=== PATIENT | male | born 1940 | race Caucasian/White ===

== ENCOUNTER 2017-09-10 09:57 | Emergency (ER) | payer MEDICARE ==
--- NOTE | 2017-09-10 10:14 | Emergency Department Record ---
History of Present Illness - General Chief complaint: Extremity Problem Stated complaint: PAIN AND SWELLING RIGHT ELBOW Time Seen by Provider: 09/10/17 10:05 Source: Patient Mode of Arrival: Ambulatory Limitations: No limitations - History of Present Illness Initial comments: Pt to ED with complaint of left elbow pain and swelling onset one day CV/CVN CV [employer]. Pt is right hand dominate. Pt denies trauma or injury. No hx of similar. Pt is a insulin dependant Diabetic. No fever, chills, N/V. MD Complaint: Extremity pain, Extremity swelling, Joint pain Onset/Timin -: Days(s) Location: Left, Elbow History of Same: Yes -: Yes Arthralgia, No Fever, No Myalgia, No Associated chest pain Radiation: Proximal, Distal Severity scale (1-10): 5 Quality: Aching Consistency: Constant Improves with: Nothing Worsens with: Nothing Associated Symptoms: Denies other symptoms - Related Data Home Medications Medication Instructions Recorded Confirmed Last Taken Insulin Glargine,Hum.rec.anlog 35 units SQ QHS 09/10/17 09/10/17 Unknown [Lantus Solostar] Lisinopril/Hydrochlorothiazide 1 tab PO DAILY 09/10/17 09/10/17 Unknown [Lisinopril-Hctz 20-12.5 mg Tab] Metformin HCl 1,000 mg PO DAILY 09/10/17 09/10/17 Unknown Simvastatin 80 mg PO DAILY 09/10/17 09/10/17 Unknown Tamsulosin HCl [Flomax] 0.4 mg PO DAILY 09/10/17 09/10/17 Unknown Previous Rx's Medication Instructions Recorded Cephalexin [Keflex] 1,000 mg PO BID 10 Days #40 cap 09/10/17 Ibuprofen [Motrin 600Mg] 600 mg PO Q6H 10 Days #40 tablet 09/10/17 Allergies Allergy/AdvReac Type Severity Reaction Status Date / Time sitagliptin phosphate Allergy RASH Verified 03/01/15 07:29 [From Allison] Travel Screening - Travel/Exposure Within Last 30 Days Have you traveled within the last 30 days?: No Review of Systems Constitutional: Denies: Chills, Fever, Malaise Eyes: Denies: Eye discharge, Photophobia ENT: Denies: Congestion Respiratory: Denies: Cough, Dyspnea Cardiovascular: Denies: Chest pain Endocrine: Denies: Fatigue Gastrointestinal: Denies: Abdominal pain, Nausea, Vomiting Musculoskeletal: Reports: As per HPI, Arthralgia, Joint swelling. Denies: Back pain Skin: Reports: As per HPI. Denies: Rash Neurological: Denies: Abnormal gait, Weakness Psychiatric: Denies: Anxiety Past Medical History - SOCIAL HISTORY Smoking Status: Current every day smoker Alcohol Use: None Drug Use: None - RESPIRATORY Hx Respiratory Disorders: No - CARDIOVASCULAR Hx Cardio Disorders: Yes Hx Hypertension: Yes Comment:: high cholesterol - NEURO Hx Neuro Disorders: Yes Comment:: rls - GI Hx GI Disorders: Yes Hx of Polyps: Yes - Hx Genitourinary Disorders: Yes Hx Kidney Stones: Yes Hx Prostate Problems: Yes - ENDOCRINE Hx Endocrine Disorders: Yes - MUSCULOSKELETAL Hx Musculoskeletal Disorders: No - PSYCH Hx Psych Problems: No - HEMATOLOGY/ONCOLOGY Hx Hematology/Oncology Disorders: No Family Medical History Any Significant Family History?: Yes Hx Cancer: Mother Physical Exam - General General Appearance: Alert, Oriented x3, Cooperative, No acute distress Limitations: No limitations - Head Head exam: Atraumatic - Eye Eye exam: Normal appearance, PERRL, EOMI - ENT ENT exam: Normal exam, Mucous membranes moist Ear exam: Normal external inspection Nasal Exam: Normal inspection Mouth exam: Normal external inspection Throat exam: Normal inspection - Neck Neck exam: Normal inspection. negative: Lymphadenopathy - Respiratory Respiratory exam: Normal lung sounds bilaterally. negative: Rhonchi, Wheezes - Cardiovascular Cardiovascular Exam: Regular rate, Normal rhythm Peripheral Pulses: 2+: Radial (R), Radial (L) - GI/Abdominal GI/Abdominal exam: Soft, Normal bowel sounds. negative: Guarding, Tenderness - Extremities Extremities exam: Joint swelling, Normal capillary refill, Tenderness Image of Full Body: 1 - tenderness posterior over bursa with mild erythema and warmth. Limited ROM due to swelling and pain. - Back Back exam: Reports: Normal inspection - Neurological Neurological exam: Alert, Normal gait, Oriented X3 - Psychiatric Psychiatric exam: Normal affect, Normal mood - Skin Skin exam: Other (left elbow as above. Erythema without skin break or drainage. ) Course Vital Signs 09/10/17 10:00 Temperature 97.5 F L Pulse Rate 83 Respiratory 17 Rate Blood Pressure 135/73 Pulse Ox 97 Medical Decision Making - Management Options MDM Management: No Additional Work-up Planned - Data Complexity MDM Data: Labs Ordered and/or Reviewed, X-Ray Ordered and/or Reviewed, Independent Visualization of Image, Tracing, or Specimen - Lab Data Result diagrams: 09/10/17 10:20 09/10/17 10:20 Disposition Disposition: Discharge Clinical Impression: Bursitis Qualifiers: Bursitis location: elbow Elbow bursitis location: olecranon bursitis Laterality : left Qualified Code(s): M70.22 - Olecranon bursitis, left elbow Disposition: Home, Self-Care Condition: (2) Stable Instructions: Elbow Bursitis (ED) Additional Instructions: Warm compresses four times a day. Take medications as instructed without fail. Monitor your blood glucose closely. Recheck with your family doctor in one to two days or return to the ED if worse. Prescriptions: Cephalexin [Keflex] 1,000 mg PO BID 10 Days #40 cap Ibuprofen [Motrin 600Mg] 600 mg PO Q6H 10 Days #40 tablet Forms: Patient Portal Access Quality - Quality Measures Quality Measures: N/A - Blood Pressure Screening Does Patient Have Any of the Following: No Blood Pressure Classification: Pre-Hypertensive BP Reading Systolic Measurement: 135 Diastolic Measurement: 73 Screening for High Blood Pressure: < Pre-Hypertensive BP, F/U Documented > [ G8950] Pre-Hypertensive Follow-up Interventions: Follow-up with rescreen every year.
[2017-09-10 10:32] LABS: BASO % 0.3 % (0-6); EOS % 0.9 % (0-6); GRAN % 72.5 % (47-80); HEMATOCRIT 39.2 % (42.0-52.0); HEMOGLOBIN 12.5 gm/dl (14.0-18.0); LYMPH % 15.2 % (16-45); MEAN CELL VOLUME 89.9 fl (81-97); MEAN CORPUSCULAR HGB CONC 31.9 g/dl (32-36); MEAN PLATELET VOLUME 9.9 fl (7.4-10.4); MONO % 11.1 % (0-9); PLATELET COUNT 246 K/uL (130-400); RED BLOOD COUNT 4.36 M/uL (4.40-5.70); RED CELL DISTRIBUTION WIDTH 13.8 % (11.5-14.5)
[2017-09-10 10:41] LABS: BLOOD UREA NITROGEN 16 mg/dL (8-23); CREATININE 0.9 mg/dL (0.7-1.2); EST GLOMERULAR FILTRATION RATE > 60 mL/min
[2017-09-10 10:43] LABS: MEAN CORPUSCULAR HEMOGLOBIN 28.6 pg (27-33)
[2017-09-10 10:44] LABS: GLUCOSE,RANDOM 139 mg/dL (74-109)
[2017-09-10] MEDS: CEFAZOLIN 2 Gram 2 GM/50 ML BAG IVPB ONE (10:53)
--- NOTE | 2017-09-11 10:46 | RADIOLOGY REPORT ---
EXAM: LEFT ELBOW COMPLETE HISTORY: PATIENT WOKE WITH PAIN AND SWELLING IN THE LEFT ELBOW. NO KNOWN INJURY. TECHNIQUE: AP, oblique, lateral and olecranon views of the left elbow were obtained. Comparison: None. Encounter: Initial. FINDINGS: There is normal bone mineralization. No acute fracture, dislocation , or destructive bone lesion is seen. There are moderate osteoarthritic changes most pronounced in the medial compartment. Tiny calcific densities project near the posterior joint line on the lateral view with loose bodies not excluded. The anterior and posterior fat pad signs are present suggesting joint effusion. No foreign body identified. Enthesopathic spurring visualized in the epicondylar regions most pronounced medially. IMPRESSION: 1. NO ACUTE FRACTURE NOR DISLOCATION. 2. MODERATE OSTEOARTHRITIC CHANGES MOST PRONOUNCED IN THE MEDIAL COMPARTMENT WITH POSSIBLE TINY LOOSE BODIES AT THE POSTERIOR JOINT LINE. JOINT EFFUSION. JOB NUMBER: [id number] MTDD
== END 2017-09-10 11:35 | disposition home or self-care (01) ==
LOC: ER 09:57
DX: M70.22 Olecranon bursitis, left elbow (principal); E11.9 Type 2 diabetes mellitus without complications; Z79.4 Long term (current) use of insulin; I10 Essential (primary) hypertension; F17.210 Nicotine dependence, cigarettes, uncomplicated
CPT/HCPCS: 80048; 85027; 96365; 99284

== ENCOUNTER 2018-06-27 08:26 | Emergency (ER) | payer MEDICARE ==
--- NOTE | 2018-06-27 08:50 | Emergency Department Record ---
History of Present Illness - General Chief Complaint: Shortness of breath Stated Complaint: OLU Time Seen by Provider: 06/27/18 08:29 Source: Patient, Family Mode of Arrival: EMS Limitations: No limitations - History of Present Illness Initial Comments: The patient is here due to becoming SOB at home an hour ago. He was walking to his house and had walked 50-60 feet when he became very SOB. He then sat down and felt better. The patient denied any Cp or discomfort with the SOB. He has not been feeling well recently and has been under a lot of stress. The patient denies any hx of CAD or heart issues but has never had any heart stress testing or studies. He does have significant cardiac risk factors of tobacco use, HTN, and DM. MD Complaint: Shortness of breath Onset/Timin -: Days(s) Quality: Aching Consistency: Constant Improves With: Nothing Worsens With: Nothing - Related Data Home Medications Medication Instructions Recorded Confirmed Last Taken Aspirin 81 mg PO DAILY 06/27/18 06/27/18 06/27/18 Carbidopa/Levodopa 25Mg/100Mg 1 each PO TID 06/27/18 06/27/18 06/27/18 [Sinemet] Previous Rx's Medication Instructions Recorded Ibuprofen [Motrin 600Mg] 600 mg PO Q6H 10 Days #40 tablet 09/10/17 Allergies Allergy/AdvReac Type Severity Reaction Status Date / Time sitagliptin phosphate Allergy RASH Verified 06/27/18 08:35 [From Allison] Travel Screening - Travel/Exposure Within Last 30 Days Have you traveled within the last 30 days?: No - Travel/Exposure Within Last Year Have you traveled outside the [place] in the last year?: No - Additonal Travel Details Have you been exposed to anyone with a communicable illness?: No - Travel Symptoms Symptom Screening: None Review of Systems Constitutional: Denies: Chills, Fever Eyes: Denies: Eye discharge ENT: Denies: Congestion Respiratory: Reports: Dyspnea. Denies: Cough, Hemoptysis Cardiovascular: Denies: Chest pain Endocrine: Denies: Fatigue Gastrointestinal: Denies: Nausea Genitourinary: Denies: Dysuria Musculoskeletal: Denies: Arthralgia Skin: Denies: Bruising Past Medical History - SOCIAL HISTORY Smoking Status: Current every day smoker Alcohol Use: None Drug Use: None - RESPIRATORY Hx Respiratory Disorders: No - CARDIOVASCULAR Hx Cardio Disorders: Yes Hx Hypertension: Yes Comment:: high cholesterol - NEURO Hx Neuro Disorders: Yes Comment:: rls/ parkinson's - GI Hx GI Disorders: Yes Hx of Polyps: Yes - Hx Genitourinary Disorders: Yes Hx Kidney Stones: Yes Hx Prostate Problems: Yes - ENDOCRINE Hx Endocrine Disorders: Yes - MUSCULOSKELETAL Hx Musculoskeletal Disorders: No - PSYCH Hx Psych Problems: No - HEMATOLOGY/ONCOLOGY Hx Hematology/Oncology Disorders: No Family Medical History Any Significant Family History?: No Hx Cancer: Mother Physical Exam - General General Appearance: Alert, Oriented x3, Cooperative, No acute distress - Head Head exam: Atraumatic, Normocephalic, Normal inspection - Eye Eye exam: Normal appearance, PERRL, EOMI - ENT Throat exam: Normal inspection. negative: Tonsillar erythema, Tonsillar exudate - Neck Neck exam: Normal inspection, Full ROM. negative: Tenderness - Respiratory Respiratory exam: Rales (in the lower 1/3 bilaterally.). negative: Normal lung sounds bilaterally, Respiratory distress - Cardiovascular Cardiovascular Exam: Regular rate, Normal rhythm, Normal heart sounds - GI/Abdominal GI/Abdominal exam: Soft, Normal bowel sounds. negative: Tenderness - Extremities Extremities exam: Normal inspection, Full ROM, Normal capillary refill. negative: Calf tenderness, Pedal edema, Tenderness - Back Back exam: Reports: Normal inspection, Full ROM. Denies: Muscle spasm, Rash noted, Tenderness - Neurological Neurological exam: Alert, Normal gait, Oriented X3. negative: Abnormal gait, Motor sensory deficit - Psychiatric Psychiatric exam: negative: Depressed Course Vital Signs 06/27/18 08:28 Temperature 98.3 F Pulse Rate 83 Respiratory 18 Rate Blood Pressure 123/81 Pulse Ox 97 - Reevaluation(s) Reevaluation #1: The patient is doing better at this time. He denies any CP or SOB and is resting comfortably. I did discuss the results with the patient and family and they would like to go to [facility] for admission. The patient and family are clear with their request to be transferred. Because of that I did discuss the case with Dr. Jolly and she does accept the patient for transfer. 06/27/18 09:41 Medical Decision Making - Data Complexity MDM Data: Labs Ordered and/or Reviewed, X-Ray Ordered and/or Reviewed, EKG Ordered and/or Reviewed - Lab Data Result diagrams: 06/27/18 08:40 05/05/19 08:40 - EKG Data -: EKG Interpreted by Me EKG: No Acute Changes - Radiology Data Radiology results: Report reviewed (CXR: increased interstitial markings.) Disposition Disposition: Transfer Clinical Impression: CHF (congestive heart failure) Qualifiers: Heart failure type: unspecified Heart failure chronicity: unspecified Qualified Code(s): I50.9 - Heart failure, unspecified Disposition: Acute Care Hospital Transfer Transfer To: [facility] Reason For Transfer: Cardiology Accepting Physician: Shanae. Time Discussed w/Accepting Physician: 09:46 Condition: (2) Stable Forms: Patient Portal Access Time of Disposition: :46 Quality - Quality Measures Quality Measures: N/A - Blood Pressure Screening View Details: Yes Does Patient Have Any of the Following: No Blood Pressure Classification: Pre-Hypertensive BP Reading Systolic Measurement: 123 Diastolic Measurement: 81 Screening for High Blood Pressure: < Pre-Hypertensive BP, F/U Documented > [ G8950] Pre-Hypertensive Follow-up Interventions: Referral to alternative/primary care provider.
[2018-06-27 08:59] LABS: BASO % 0.4 % (0-6); EOS % 2.5 % (0-6); GRAN % 59.8 % (47-80); HEMATOCRIT 42.6 % (42.0-52.0); HEMOGLOBIN 13.2 gm/dl (14.0-18.0); MEAN CELL VOLUME 91.8 fl (81-97); MEAN CORPUSCULAR HEMOGLOBIN 28.4 pg (27-33); MEAN PLATELET VOLUME 10.3 fl (7.4-10.4); MONO % 7.3 % (0-9); PLATELET COUNT 283 K/uL (130-400); RED BLOOD COUNT 4.64 M/uL (4.40-5.70); RED CELL DISTRIBUTION WIDTH 14.3 % (11.5-14.5); WHITE BLOOD COUNT W/O DIFF 11.3 K/uL (4.2-12.2)
[2018-06-27 09:10] LABS: INR 1.1; PARTIAL THROMBOPLASTIN TIME 29.6 SECONDS (24.5-39.1); PROTHROMBIN TIME (PATIENT) 10.7 SECONDS (9.5-12.1)
[2018-06-27 09:13] LABS: BLOOD UREA NITROGEN 13 mg/dL (8-23); EST GLOMERULAR FILTRATION RATE > 60 mL/min
[2018-06-27 09:14] LABS: TOTAL PROTEIN 6.9 g/dL (6.6-8.7)
[2018-06-27 09:16] LABS: GLUCOSE,RANDOM 113 mg/dL (74-109)
[2018-06-27 09:18] LABS: ALB/GLOB RATIO 1.6 (1.1-1.8); ALBUMIN 4.2 g/dL (4.0-5.0); ALKALINE PHOSPHATASE 56 U/L (40-129); ALT/SGPT 10 U/L (<41); AST/SGOT 13 U/L (10.0-50.0); CREATINE PHOSPHOKINASE 73 U/L (39-308)
[2018-06-27 09:20] LABS: CKMB 1.9 ng/mL (<6.73)
[2018-06-27] MEDS ORDERED: FUROSEMIDE IV 40MG/4ML VIAL IVP ONE (09:23)
== END 2018-06-27 11:19 | disposition short-term general hospital (02) ==
LOC: ER 08:26
DX: I50.9 Heart failure, unspecified (principal); R06.02 Shortness of breath; I10 Essential (primary) hypertension; F17.210 Nicotine dependence, cigarettes, uncomplicated; E11.9 Type 2 diabetes mellitus without complications; Z79.84 Long term (current) use of oral hypoglycemic drugs; Z79.4 Long term (current) use of insulin
CPT/HCPCS: 71046; 80053; 82550; 82553; 83880; 84484; 85025; 85610; 85730; 93005; 93010; 96374; 99285; J1940

== ENCOUNTER 2018-09-21 18:17 | Emergency (ER) | payer MEDICARE ==
[2018-09-21] MEDS ORDERED: ASPIRIN 81 MG CHEWABLE TABLET PO ONE (18:20)
--- NOTE | 2018-09-21 18:29 | Emergency Department Record ---
History of Present Illness - General Stated Complaint: CHEST PAIN EARLIER TODAY/RESOLVED Time Seen by Provider: 09/21/18 18:19 Source: Patient Mode of Arrival: Ambulatory Limitations: No limitations - History of Present Illness Initial Comments: 78 yo male presents to ED for evaluation of chest discomfort that began 1 hour ago, described as "pressure" to the left chest. Patient denies radiation, denies fevers, chills, cough, or recent illness. Patient does report history of stents x 3 placed in June of this year with Dr. 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 Patient reports similar pain symptoms prior to stent placement. Patient denies any precipitating factors on examination. MD Complaint: Chest pain Onset/Timin -: Hour(s) Pain Location: Left chest Pain Radiation: None Severity: Moderate Quality: Other ("pressure") Consistency: Intermittent Improves With: Nothing Worsens With: Nothing Anginal Symptoms: Diaphoresis Treatments Prior to Arrival: None - Related Data Home Medications Medication Instructions Recorded Confirmed Last Taken Metoprolol Succinate [Toprol Xl] 25 mg PO DAILY 09/21/18 09/21/18 Unknown Spironolactone 25 mg PO DAILY 09/21/18 09/21/18 Unknown Ticagrelor [Brilinta] 90 mg PO DAILY 09/21/18 09/21/18 Unknown Allergies Allergy/AdvReac Type Severity Reaction Status Date / Time sitagliptin phosphate Allergy RASH Verified 06/27/18 08:35 [From Allison] Review of Systems Constitutional: Denies: Chills, Fever, Malaise, Night sweats Eyes: Denies: Eye discharge, Eye pain ENT: Denies: Congestion, Ear pain, Epistaxis Respiratory: Denies: Cough, Dyspnea Cardiovascular: Reports: Chest pain. Denies: Dyspnea on exertion Endocrine: Denies: Fatigue, Heat or cold intolerance Gastrointestinal: Denies: Abdominal pain, Nausea, Vomiting Genitourinary: Denies: Incontinence, Retention Musculoskeletal: Denies: Arthralgia, Back pain Skin: Reports: Other (Diaphoresis). Denies: Bruising, Change in color Neurological: Denies: Confusion, Headache Psychiatric: Denies: Anxiety Hematological/Lymphatic: Denies: Anemia, Blood Clots Past Medical History - SOCIAL HISTORY Smoking Status: Current every day smoker Drug Use: None - RESPIRATORY Hx Respiratory Disorders: No - CARDIOVASCULAR Hx Cardio Disorders: Yes Hx Hypertension: Yes Comment:: high cholesterol - NEURO Hx Neuro Disorders: Yes Comment:: rls/ parkinson's - GI Hx GI Disorders: Yes Hx of Polyps: Yes - Hx Genitourinary Disorders: Yes Hx Kidney Stones: Yes Hx Prostate Problems: Yes - ENDOCRINE Hx Endocrine Disorders: Yes - MUSCULOSKELETAL Hx Musculoskeletal Disorders: No - PSYCH Hx Psych Problems: No - HEMATOLOGY/ONCOLOGY Hx Hematology/Oncology Disorders: No Family Medical History Hx Cancer: Mother Physical Exam - General General Appearance: Alert, Oriented x3, Cooperative, Mild distress Limitations: No limitations - Head Head exam: Atraumatic, Normocephalic, Normal inspection Head exam detail: negative: Abrasion, Contusion, Malagon's sign, General tenderness, Hematoma, Laceration - Eye Eye exam: Normal appearance. negative: Conjunctival injection, Periorbital swelling, Periorbital tenderness, Scleral icterus - ENT Ear exam: negative: Auricular hematoma, Auricular trauma Nasal Exam: negative: Active bleeding, Discharge, Dried blood, Foreign body Mouth exam: negative: Drooling, Laceration, Muffled voice, Tongue elevation - Neck Neck exam: Normal inspection. negative: Meningismus, Tenderness - Respiratory Respiratory exam: Normal lung sounds bilaterally. negative: Respiratory distress, Rhonchi, Stridor, Wheezes - Cardiovascular Cardiovascular Exam: Regular rate, Normal rhythm, Normal heart sounds - GI/Abdominal GI/Abdominal exam: Soft. negative: Distended, Rebound, Rigid, Tenderness - Rectal Rectal exam: Deferred - exam: Deferred - Extremities Extremities exam: Normal inspection. negative: Pedal edema, Tenderness - Back Back exam: Denies: CVA tenderness (R), CVA tenderness (L) - Neurological Neurological exam: Alert, Normal gait, Oriented X3 - Psychiatric Psychiatric exam: Normal affect, Normal mood - Skin Skin exam: Normal color. negative: Abrasion Type of lesion: negative: abrasion Course - Reevaluation(s) Reevaluation #1: 09/21/18 18:28 EKG: NSR 82 LAD, Incomplete LBBB No acute ST-T wave changes Unchanged from 07/21/18 Reevaluation #2: 09/21/18 19:08 Laboratory studies were reviewed and appear grossly unremarkable for an acute process. CXR: NO acute process Patient was updated on all results, resting pain-free at this time[facility]. Reevaluation #3: 09/21/18 19:10 Case was discussed with Dr. Martinez, will accept transfer for further cardiac evaluation. Medical Decision Making - Lab Data Result diagrams: 09/21/18 18:35 09/21/18 18:35 Disposition Disposition: Transfer Clinical Impression: Chest pain Qualifiers: Chest pain type: unspecified Qualified Code(s): R07.9 - Chest pain, unspecified Disposition: Acute Care Hospital Transfer Transfer To: [facility] Reason For Transfer: Cardiac evaluation Accepting Physician: Michelle Time Discussed w/Accepting Physician: 19:10 Condition: (2) Stable Time of Disposition: 19:10 Quality - Quality Measures Quality Measures: N/A - Blood Pressure Screening Does Patient Have Any of the Following: No Blood Pressure Classification: Pre-Hypertensive BP Reading Systolic Measurement: 122 Diastolic Measurement: 72 Screening for High Blood Pressure: < Pre-Hypertensive BP, F/U Documented > [G8950] Pre-Hypertensive Follow-up Interventions: Referral to alternative/primary care provider.
[2018-09-21 18:46] LABS: ABSOLUTE NEUTROPHIL COUNT 5.19; BASO % 0.7 % (0-6); EOS % 3.6 % (0-6); GRAN % 64.6 % (47-80); HEMATOCRIT 39.4 % (42.0-52.0); HEMOGLOBIN 12.7 gm/dl (14.0-18.0); LYMPH % 23.6 % (16-45); MEAN CELL VOLUME 88.5 fl (81-97); MEAN CORPUSCULAR HEMOGLOBIN 28.5 pg (27-33); MEAN CORPUSCULAR HGB CONC 32.2 g/dl (32-36); MEAN PLATELET VOLUME 9.4 fl (7.4-10.4); MONO % 7.5 % (0-9); PLATELET COUNT 239 K/uL (130-400); RED BLOOD COUNT 4.45 M/uL (4.40-5.70); RED CELL DISTRIBUTION WIDTH 13.7 % (11.5-14.5)
[2018-09-21 18:55] LABS: BLOOD UREA NITROGEN 24 mg/dL (8-23)
[2018-09-21 18:56] LABS: CREATININE 1.4 mg/dL (0.7-1.2); EST GLOMERULAR FILTRATION RATE 52 mL/min; TOTAL PROTEIN 6.9 g/dL (6.6-8.7)
[2018-09-21 18:58] LABS: GLUCOSE,RANDOM 204 mg/dL (74-109)
[2018-09-21 19:01] LABS: ALB/GLOB RATIO 1.8 (1.1-1.8); ALBUMIN 4.4 g/dL (4.0-5.0); ALKALINE PHOSPHATASE 73 U/L (40-129); ALT/SGPT 17 U/L (<41); AST/SGOT 14 U/L (10.0-50.0)
--- NOTE | 2018-09-22 13:38 | RADIOLOGY REPORT ---
EXAM: CHEST, TWO VIEWS HISTORY: CHEST PAIN UNDER LEFT BREAST. TECHNIQUE: Two views of the chest were obtained. FINDINGS: The heart is at the upper limits of normal. There is atherosclerotic aortic elongation without aneurysm. The lungs appear clear. There are no effusions. IMPRESSION: NO ACUTE INTRATHORACIC PROCESS. JOB NUMBER: [id number] MTDD
== END 2018-09-21 19:47 | disposition short-term general hospital (02) ==
LOC: ER 18:17
DX: R07.89 Other chest pain (principal); R61 Generalized hyperhidrosis; I10 Essential (primary) hypertension; F17.210 Nicotine dependence, cigarettes, uncomplicated; E11.9 Type 2 diabetes mellitus without complications
CPT/HCPCS: 71046; 80053; 84484; 85025; 93005; 93010; 99285

== ENCOUNTER 2018-12-14 19:03 | Observation (INO) | payer MEDICARE ==
--- NOTE | 2018-12-14 19:14 | Emergency Department Record ---
History of Present Illness - General Chief Complaint: Shortness of breath Stated Complaint: amish Time Seen by Provider: 12/14/18 19:05 Source: Patient Mode of Arrival: Wheelchair Limitations: No limitations - History of Present Illness Initial Comments: 78 yo male presents to ED for evaluation of "feeling funny". Patient denies pain, numbness, tingling, or focal weakness, patient just reports "I don't feel right". Patient is unable to describe his symptoms further. Patient did see his PCP earlier today, reports that he was feeling similar at that time, unknown cause. Patient denies recent illness, fevers, chills, cough, or abdominal pain symptoms. Patient reports history of pacemaker 1 month ago, reports stents x 3 previously, does take Brlinta. Patient dneies slurred speech or focal weakness on examination. Onset/Timin -: Days(s) Quality: Other (Patient cannot describe) Consistency: Constant Improves With: Nothing Worsens With: Nothing Associated Symptoms: Denies other symptoms - Related Data Allergies Allergy/AdvReac Type Severity Reaction Status Date / Time sitagliptin phosphate Allergy RASH Verified 06/27/18 08:35 [From Allison] Review of Systems Constitutional: Denies: Chills, Fever, Malaise, Night sweats, Weakness Eyes: Denies: Eye discharge, Eye pain ENT: Denies: Congestion, Epistaxis Respiratory: Denies: Cough, Dyspnea Cardiovascular: Denies: Chest pain, Dyspnea on exertion, Edema Endocrine: Denies: Fatigue, Heat or cold intolerance Gastrointestinal: Denies: Abdominal pain, Nausea, Vomiting Genitourinary: Denies: Incontinence, Retention Musculoskeletal: Denies: Arthralgia, Back pain Skin: Denies: Bruising, Change in color Neurological: Denies: Abnormal gait, Confusion, Headache, Seizure Psychiatric: Denies: Anxiety Hematological/Lymphatic: Reports: Easy bleeding, Easy bruising. Denies: Anemia, Blood Clots Past Medical History - SOCIAL HISTORY Smoking Status: Current every day smoker Drug Use: None - RESPIRATORY Hx Respiratory Disorders: No - CARDIOVASCULAR Hx Cardio Disorders: Yes Hx Hypertension: Yes Comment:: high cholesterol - NEURO Hx Neuro Disorders: Yes Comment:: rls/ parkinson's - GI Hx GI Disorders: Yes Hx of Polyps: Yes - Hx Genitourinary Disorders: Yes Hx Kidney Stones: Yes Hx Prostate Problems: Yes - ENDOCRINE Hx Endocrine Disorders: Yes - MUSCULOSKELETAL Hx Musculoskeletal Disorders: No - PSYCH Hx Psych Problems: No - HEMATOLOGY/ONCOLOGY Hx Hematology/Oncology Disorders: No Family Medical History Hx Cancer: Mother Physical Exam - General General Appearance: Alert, Oriented x3, Cooperative, Mild distress, Anxious Limitations: No limitations - Head Head exam: Atraumatic, Normocephalic, Normal inspection Head exam detail: negative: Abrasion, Contusion, Malagon's sign, General tenderness, Hematoma, Laceration - Eye Eye exam: Normal appearance. negative: Conjunctival injection, Periorbital swelling, Periorbital tenderness, Scleral icterus - ENT Ear exam: negative: Auricular hematoma, Auricular trauma Nasal Exam: negative: Active bleeding, Discharge, Dried blood, Foreign body Mouth exam: negative: Drooling, Laceration, Muffled voice, Tongue elevation - Neck Neck exam: Normal inspection. negative: Meningismus, Tenderness - Respiratory Respiratory exam: Normal lung sounds bilaterally. negative: Rales, Respiratory distress, Rhonchi, Stridor - Cardiovascular Cardiovascular Exam: Regular rate, Normal rhythm, Normal heart sounds - GI/Abdominal GI/Abdominal exam: Soft. negative: Rebound, Rigid, Tenderness - Rectal Rectal exam: Deferred - exam: Deferred - Extremities Extremities exam: Normal inspection. negative: Pedal edema, Tenderness - Back Back exam: Denies: CVA tenderness (R), CVA tenderness (L) - Neurological Neurological exam: Alert, CN II-XII intact, Oriented X3, Other (No clinical evidence for CVA on examination). negative: Motor sensory deficit - Psychiatric Psychiatric exam: Normal affect, Normal mood - Skin Skin exam: Normal color. negative: Abrasion Type of lesion: negative: abrasion Course - Reevaluation(s) Reevaluation #1: 12/14/18 19:14 EKG: NSR [address] ST-T wave changes Reevaluation #2: 12/14/18 20:10 Laboratory studies were reviewed and appear grossly unremarkable for an acute process except for the following: Hgb 11.8 Glucose 251 Reevaluation #3: 12/14/18 21:14 CT Brain: No acute intra-cranial hemorrhage CXR: Post-operative changes No acute process Patient and family were updated on all results, will admit for further cardiac evaluation. Medical Decision Making - Lab Data Result diagrams: 12/14/18 19:15 12/14/18 19:15 Disposition Disposition: Admit Clinical Impression: Atypical chest pain Disposition: Still a Patient at [facility] Decision to Admit: Admit from ER Decision to Admit Date: 12/14/18 Decision to Admit Time: 21:15 Condition: (2) Stable Forms: Patient Portal Access Time of Disposition: 21:15 Quality - Quality Measures Quality Measures: N/A - Blood Pressure Screening Does Patient Have Any of the Following: Active Dx of HTN Blood Pressure Classification: Hypertensive Reading Systolic Measurement: 186 Diastolic Measurement: 95 Screening for High Blood Pressure: Patient Exclusion, Hx of HTN [G9744]
[2018-12-14] MEDS ORDERED: ASPIRIN 81 MG CHEWABLE TABLET PO ONE (19:19)
[2018-12-14 19:28] LABS: ABSOLUTE NEUTROPHIL COUNT 5.86; BASO % 0.4 % (0-6); EOS % 2.9 % (0-6); GRAN % 62.3 % (47-80); HEMATOCRIT 37.3 % (42.0-52.0); HEMOGLOBIN 11.8 gm/dl (14.0-18.0); LYMPH % 26.5 % (16-45); MEAN CELL VOLUME 89.9 fl (81-97); MEAN CORPUSCULAR HEMOGLOBIN 28.4 pg (27-33); MEAN CORPUSCULAR HGB CONC 31.6 g/dl (32-36); MEAN PLATELET VOLUME 9.2 fl (7.4-10.4); MONO % 7.9 % (0-9); PLATELET COUNT 287 K/uL (130-400); RED BLOOD COUNT 4.15 M/uL (4.40-5.70); RED CELL DISTRIBUTION WIDTH 13.4 % (11.5-14.5); WHITE BLOOD COUNT W/O DIFF 9.4 K/uL (4.2-12.2)
[2018-12-14 19:45] LABS: BLOOD UREA NITROGEN 20 mg/dL (8-23); CREATININE 1.3 mg/dL (0.7-1.2); EST GLOMERULAR FILTRATION RATE 57 mL/min
[2018-12-14 19:46] LABS: TOTAL PROTEIN 7.2 g/dL (6.6-8.7)
[2018-12-14 19:48] LABS: GLUCOSE,RANDOM 251 mg/dL (74-109)
[2018-12-14 19:50] LABS: ALB/GLOB RATIO 1.6 (1.1-1.8); ALBUMIN 4.4 g/dL (4.0-5.0); ALT/SGPT 26 U/L (<41); AST/SGOT 23 U/L (10.0-50.0)
[2018-12-14 19:51] LABS: ALKALINE PHOSPHATASE 82 U/L (40-129)
--- NOTE | 2018-12-14 21:23 | RADIOLOGY REPORT ---
EXAMINATION: Two View Chest Radiographs EXAM DATE: 12/14/2018 9:12 PM TECHNIQUE: Frontal and lateral views INDICATION: feel funny COMPARISON: August 2018 chest x-ray. ENCOUNTER: Not applicable FINDINGS: The heart, mediastinum, and pulmonary vasculature are normal. No lung consolidation or pleural effu sions are present. Hyperexpansion of the lungs may reflect pulmonary emphysema. Left-sided cardiac pa cemaker and defibrillator is in stable position. IMPRESSION: No acute cardiopulmonary abnormality. Dictated by: Jorge Ford MD on 12/14/2018 9:21 PM. .
--- NOTE | 2018-12-14 21:24 | CT SCAN REPORT ---
EXAMINATION: CT Head without IV Contrast EXAM DATE: 12/14/2018 9:12 PM TECHNIQUE: Standard protocol CT images of the head were obtained without intravenous contrast. Saldana l and sagittal reconstructed images were created. INDICATION: feel funny COMPARISON: None HAND DOMINANCE: Unknown. ENCOUNTER: Not applicable FINDINGS: CT of the head without contrast shows no evidence of intracranial mass, hemorrhage, or extra-axial fl uid collection. There is no midline shift or mass effect. There is no CT evidence of acute/subacute i nfarct. Ventricles and sulci are age-appropriate. The orbits are unremarkable. The paranasal sinuses and mastoid air cells are clear. There is no evidence of skull or facial bone fracture. IMPRESSION: No acute intracranial abnormality. Dictated by: Jorge Ford MD on 12/14/2018 9:22 PM. .
[2018-12-14] MEDS ORDERED: LORAZEPAM 0.5 MG TABLET PO ONE (22:26)
[2018-12-14] MEDS ORDERED: LEVEMIR FLEXTOUCH 100 UNIT/ML INSULIN PEN SQ SCH (22:30)
[2018-12-15] MEDS ORDERED: TICAGRELOR 90 MG PO SCH (10:00)
[2018-12-15] MEDS ORDERED: METOPROLOL SUCC 25 MG TAB.ER PO SCH (10:00)
[2018-12-15] MEDS ORDERED: SPIRONOLACTONE 25 MG TAB PO SCH (10:00)
[2018-12-15] MEDS ORDERED: ASPIRIN 81 MG CHEWABLE TABLET PO SCH (10:00)
[2018-12-15] MEDS ORDERED: TAMSULOSIN HCL 0.4 MG CAP.ER.24H PO SCH (10:00)
[2018-12-15] MEDS ORDERED: HYDROCHLOROTHIAZIDE 12.5 MG CAPSULE PO SCH (10:00)
[2018-12-15] MEDS ORDERED: LISINOPRIL 20 MG TABLET PO SCH (10:00)
[2018-12-15 10:45] LABS: URINE APPEARANCE CLEAR; URINE BILIRUBIN NEGATIVE (NEGATIVE); URINE BLOOD TRACE-I (NEGATIVE); URINE COLOR YELLOW; URINE GLUCOSE (UA) NEGATIVE (NEGATIVE); URINE KETONE NEGATIVE (NEGATIVE); URINE LEUKOCYTE ESTERASE NEGATIVE (NEGATIVE); URINE NITRITE NEGATIVE (NEGATIVE); URINE PROTEIN NEGATIVE (NEGATIVE); URINE UROBILINOGEN 0.2 E.U./dL (0.20 - 1.00)
[2018-12-15 10:55] LABS: URINE EPITHELIAL CELLS NONE SEEN (FEW); URINE RBC 0 - 2 (NONE SEEN); URINE WBC NONE SEEN (0-2/hpf)
--- NOTE | 2018-12-15 11:45 | History & Physical ---
History of Present Illness - Date of Service Date of Service for History & Physical: 12/15/18 - History of Present Illness Admitting Diagnosis: Atypical chest pain. Possible anxiety vs. grief reaction. IDDM. CAD History of Present Illness: 78 year old male patient presents to ED last night for evaluations of "just not feeling right". Patient denied pain, chest pain, shortness of breath, dizziness, nausea, or vomiting. reported patient had a decreased appetite at dinner and was then pacing after dinner. Patient denied any similar symptoms previously. Patient denies any loss of consciousness, fall, or aggravating event earlier in the day. Patient's past medical history includes IDDM, previous cardiac stents x 3 (currently on Brilinta), and a PPM. PCP: Dr. Ramirez ED Course: EKG: NSR 85, low voltage Hgb 11.8 (12.3 11/07/18) Cr 1.3 (at baseline) Troponin negative CXR: no acute cardiopulmonary process Head CT: no acute intracranial abnormality 12/15/18: Patient A&O x 4, resting comfortably in bed. Denies any current symptoms. Reports feelings from last night have resolved. Patient's at bedside and notes patient has had significant losses over the past 6 months, including his son and 2 close friends. Reports that since then, patient has had significant health declines as well. Denies any chest pain, shortness of paul th, dizziness, nausea, or urinary symptoms today. Travel Screening - Travel/Exposure Within Last 30 Days Have you traveled within the last 30 days?: No - Travel/Exposure Within Last Year Have you traveled outside the [place] in the last year?: No - Additonal Travel Details Have you been exposed to anyone with a communicable illness?: No - Travel Symptoms Symptom Screening: None Review of Systems Reviewed: No additional complaints except as noted below Constitutional: Denies: Chills, Fever, Malaise, Night sweats, Weakness Eyes: Denies: Eye discharge, Eye pain ENT: Denies: Congestion, Epistaxis Respiratory: Denies: Cough, Dyspnea Cardiovascular: Denies: Chest pain, Dyspnea on exertion, Edema Endocrine: Denies: Fatigue, Heat or cold intolerance Gastrointestinal: Denies: Abdominal pain, Nausea, Vomiting Genitourinary: Denies: Incontinence, Retention Musculoskeletal: Denies: Arthralgia, Back pain Skin: Denies: Bruising, Change in color Neurological: Denies: Abnormal gait, Confusion, Headache, Seizure Psychiatric: Denies: Anxiety Hematological/Lymphatic: Reports: Easy bleeding, Easy bruising. 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 for these - GI Hx GI Disorders: Yes Hx of Polyps: Yes - Hx Genitourinary Disorders: Yes Hx Kidney Stones: Yes Hx Prostate Problems: Yes - ENDOCRINE Hx Endocrine Disorders: Yes Hx Diabetes: Yes Hx Thyroid Disease: No - MUSCULOSKELETAL Hx Musculoskeletal Disorders: No - PSYCH Hx Psych Problems: No Comment:: depression/anxiety since son passsed in May, - HEMATOLOGY/ONCOLOGY Hx Hematology/Oncology Disorders: No Family Medical History Any Significant Family History?: Yes Hx Cancer: Mother H&P Meds/Allergies - Allergies Allergies: Allergies Allergy/AdvReac Type Severity Reaction Status Date / Time sitagliptin phosphate Allergy RASH Verified 06/27/18 08:35 [From Allison] - Active Medications Active Medications: Current Medications Aspirin (Aspirin Chewable) 81 mg PO DAILY [facility] Last Admin: 12/15/18 09:19 Dose: 81 mg Documented by: Hydrochlorothiazide (Hctz 12.5mg) 12.5 mg PO DAILY [facility] Last Admin: 12/15/18 09:19 Dose: 12.5 mg Documented by: Insulin Detemir (Levemir Flextouch) 35 unit SQ QHS [facility] Last Admin: 12/14/18 22:50 Dose: 35 unit Documented by: Lisinopril (Zestril) 20 mg PO DAILY [facility] Last Admin: 12/15/18 09:19 Dose: 20 mg Documented by: Metoprolol Succinate (Toprol Xl) 25 mg PO DAILY [facility] Last Admin: 12/15/18 09:19 Dose: 25 mg Documented by: (Ticagrelor [ (Brilinta] 90 Mg)) 90 mg PO BID [facility] Last Admin: 12/15/18 10:44 Dose: 90 mg Documented by: Spironolactone (Aldactone) 25 mg PO DAILY [facility] Last Admin: 12/15/18 09:19 Dose: 25 mg Documented by: Tamsulosin HCl (Flomax) 0.4 mg PO DAILY [facility] Last Admin: 12/15/18 09:19 Dose: 0.4 mg Documented by: Physical Exam - Vital Signs Vital Signs: Vital Signs - Last 24 Hrs Temp Pulse Pulse Resp BP BP Pulse Ox 12/15/18 08:01 61 16 12/15/18 08:00 97.6 F 61 16 135/68 97 12/15/18 05:00 98.8 F 69 20 132/77 97 12/14/18 22:15 98.0 F 78 20 156/84 97 12/14/18 21:43 70 146/83 95 12/14/18 20:36 74 151/90 96 12/14/18 19:11 97.8 F 82 18 186/95 98 - General General Appearance: Alert, Oriented x3, Cooperative, No acute distress Limitations: No limitations - Head Head exam: Atraumatic, Normocephalic, Normal inspection Head exam detail: negative: Abrasion, Contusion, Malagon's sign, General tenderness, Hematoma, Laceration - Eye Eye exam: Normal appearance. negative: Conjunctival injection, Periorbital swelling, Periorbital tenderness, Scleral icterus - ENT ENT exam: Mucous membranes moist Ear exam: negative: Auricular hematoma, Auricular trauma Nasal Exam: negative: Active bleeding, Discharge, Dried blood, Foreign body Mouth exam: negative: Drooling, Laceration, Muffled voice, Tongue elevation - Neck Neck exam: Normal inspection. negative: Meningismus, Tenderness - Respiratory Respiratory exam: Normal lung sounds bilaterally. negative: Rales, Respiratory distress, Rhonchi, Stridor - Cardiovascular Cardiovascular Exam: Regular rate, Normal rhythm, Normal heart sounds Peripheral Pulses: 2+: Radial (R), Radial (L), Dorsalis Pedis (R), Dorsalis Pedis (L) - GI/Abdominal GI/Abdominal exam: Soft, Normal bowel sounds. negative: Rebound, Rigid, Tenderness - Rectal Rectal exam: Deferred - exam: Deferred - Extremities Extremities exam: Normal inspection. negative: Pedal edema, Tenderness - Back Back exam: Denies: CVA tenderness (R), CVA tenderness (L) - Neurological Neurological exam: Alert, Oriented X3. negative: Motor sensory deficit - Psychiatric Psychiatric exam: Flat affect, Normal mood - Skin Skin exam: Normal color. negative: Abrasion Type of lesion: negative: abrasion Results - Labs Result Diagrams: 12/14/18 19:15 12/14/18 19:15 Labs Last 24 Hours: Laboratory Results - last 24 hr 12/14/18 12/14/18 12/14/18 19:15 19:15 22:24 WBC 9.4 RBC 4.15 L Hgb 11.8 L Hct 37.3 L MCV 89.9 MCH 28.4 MCHC 31.6 L RDW 13.4 Plt Count 287 MPV 9.2 Gran % 62.3 Lymphocytes % 26.5 Monocytes % 7.9 Eosinophils % 2.9 Basophils % 0.4 Absolute Neutrophils 5.86 Sodium 136 Potassium 4.5 Chloride 97 L Carbon Dioxide 24.0 Anion Gap 15.0 BUN 20 Creatinine 1.3 H Estimated GFR 57 POC Glucose 171 H Random Glucose 251 H Calcium 9.6 Total Bilirubin 0.30 AST 23 ALT 26 Alkaline Phosphatase 82 Troponin T < 0.010 Total Protein 7.2 Albumin 4.4 Globulin 2.8 Albumin/Globulin Ratio 1.6 Urine Color Urine Appearance Urine pH Ur Specific [place] Urine Protein Urine Glucose (UA) Urine Ketones Urine Blood Urine Nitrite Urine Bilirubin Urine Urobilinogen Ur Leukocyte Esterase Urine RBC Urine WBC Ur Epithelial Cells 12/15/18 12/15/18 12/15/18 03:05 07:55 10:30 WBC RBC Hgb Hct MCV MCH MCHC RDW Plt Count MPV Gran % Lymphocytes % Monocytes % Eosinophils % Basophils % Absolute Neutrophils Sodium Potassium Chloride Carbon Dioxide Anion Gap BUN Creatinine Estimated GFR POC Glucose 128 H Random Glucose Calcium Total Bilirubin AST ALT Alkaline Phosphatase Troponin T < 0.010 Total Protein Albumin Globulin Albumin/Globulin Ratio Urine Color Yellow Urine Appearance Clear Urine pH 6.0 Ur Specific [place] 1.010 Urine Protein Negative Urine Glucose (UA) Negative Urine Ketones Negative Urine Blood Trace-i Urine Nitrite Negative Urine Bilirubin Negative Urine Urobilinogen 0.2 Ur Leukocyte Esterase Negative Urine RBC 0 - 2 Urine WBC None seen Ur Epithelial Cells None seen - Imaging and Cardiology CT scan - head Status: Report reviewed Chest x-ray Status: Report reviewed VTE H&P Assessment - Risk for VTE Risk for VTE: Yes Risk Level: Moderate Risk Assessment Date: 12/15/18 Risk Assessment Time: 11:46 VTE Orders Placed or Will Be Placed: No VTE Reason for No Prophylaxis: Not Indicated (anticipated admission <24 hours) Plan - Detailed Diagnosis and Plan (1) Atypical chest pain Current Visit: Yes Status: Acute Base Code: R07.89 - OTHER CHEST PAIN Comment: 12/15/18: -Non-specific symptoms of "generalized not feeling well" with significant car diac history -Troponin negative x 2, 3rd result pending -EKG unremarkable -CXR: no acute cardiopulmonary process -Currently asymptomatic (2) Grief reaction Current Visit: Yes Status: Acute Base Code: 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 Comment: 12/15/18: -Significant losses over past 6 months, including son and 2 close friends -Patient reports depression, loss of energy, no motivation, and increased anxiety -Discussed SSRI therapy, patient agreeable to start at discharge (3) DVT prophylaxis Current Visit: Yes Status: Acute Base Code: Z29.9 - ENCOUNTER FOR PROPHY LACTIC MEASURES, UNSPECIFIED Comment: 12/15/18: -Moderate risk due to age and hospitalization -Anticipated admission <24 hours -Encourage ambulation within the room (4) Full code status Current Visit: Yes Status: Acute Base Code: Z78.9 - OTHER SPECIFIED HEALTH STATUS Comment: 12/15/18: -Patient is a full code this admission
--- NOTE | 2018-12-15 12:19 | Discharge Summary ---
Providers Discharge Summary Date: 12/15/18 Date of admission: 12/14/18 22:01 Expected Date of Discharge: 12/15/18 Attending physician: GÓMEZ MESSER Primary care physician: Wei Ramirez Physical Exam - Vital Signs Vital Signs: Vital Signs - Last 24 Hrs Temp Pulse Pulse Resp BP BP Pulse Ox 12/15/18 08:01 61 16 12/15/18 08:00 97.6 F 61 16 135/68 97 12/15/18 05:00 98.8 F 69 20 132/77 97 12/14/18 22:15 98.0 F 78 20 156/84 97 12/14/18 21:43 70 146/83 95 12/14/18 20:36 74 151/90 96 12/14/18 19:11 97.8 F 82 18 186/95 98 - General General Appearance: Alert, Oriented x3, Cooperative, No acute distress Limitations: No limitations - Head Head exam: Atraumatic, Normocephalic, Normal inspection Head exam detail: negative: Abrasion, Contusion, Malagon's sign, General tenderness, Hematoma, Laceration - Eye Eye exam: Normal appearance. negative: Conjunctival injection, Periorbital swelling, Periorbital tenderness, Scleral icterus - ENT ENT exam: Mucous membranes moist Ear exam: negative: Auricular hematoma, Auricular trauma Nasal Exam: negative: Active bleeding, Discharge, Dried blood, Foreign body Mouth exam: negative: Drooling, Laceration, Muffled voice, Tongue elevation - Neck Neck exam: Normal inspection. negative: Meningismus, Tenderness - Respiratory Respiratory exam: Normal lung sounds bilaterally. negative: Rales, Respiratory distress, Rhonchi, Stridor - Cardiovascular Cardiovascular Exam: Regular rate, Normal rhythm, Normal heart sounds Peripheral Pulses: 2+: Radial (R), Radial (L), Dorsalis Pedis (R), Dorsalis Pedis (L) - GI/Abdominal GI/Abdominal exam: Soft, Normal bowel sounds. negative: Rebound, Rigid, Tenderness - Rectal Rectal exam: Deferred - exam: Deferred - Extremities Extremities exam: Normal inspection. negative: Pedal edema, Tenderness - Back Back exam: Denies: CVA tenderness (R), CVA tenderness (L) - Neurological Neurological exam: Alert, Oriented X3. negative: Motor sensory deficit - Psychiatric Psychiatric exam: Flat affect, Normal mood - Skin Skin exam: Normal color. negative: Abrasion Type of lesion: negative: abrasion Hospitalization - Hospitalization Admission Diagnosis: Atypical chest pain. Possible anxiety vs. grief reaction. IDDM. 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 (3) DVT prophylaxis Current Visit: Yes Status: Acute Base Code: Z29.9 - ENCOUNTER FOR PROPHYLACTIC MEASURES, UNSPECIFIED Comment: 12/15/18: -Moderate risk due to age and hospitalization -Anticipated admission <24 hours -Encourage ambulation within the room (4) Full code status Current Visit: Yes Status: Acute Base Code: Z78.9 - OTHER SPECIFIED HEALTH STATUS Comment: 12/15/18: -Patient is a full code this admission - Hospitalization Course Disposition: Home, Self-Care Hospital Course: 78 year old male patient presents to ED last night for evaluations of "just not feeling right". Patient denied pain, chest pain, shortness of breath, dizziness, nausea, or vomiting. reported patient had a decreased appetite at dinner and was then pacing after dinner. Patient denied any similar symptoms previously. Patient denies any loss of consciousness, fall, or aggravating event earlier in the day. Patient's past medical history includes IDDM, previous cardiac stents x 3 (currently on Brilinta), and a PPM. PCP: Dr. Ramirez ED Course: EKG: NSR 85, low voltage Hgb 11.8 (12.3 11/07/18) Cr 1.3 (at baseline) Troponin negative CXR: no acute cardiopulmonary process Head CT: no acute intracranial abnormality 12/15/18: Patient A&O x 4, resting comfortably in bed. Denies any current symptoms. Reports feelings from last night have resolved. Patient's at bedside and notes patient has had significant losses over the past 6 months, including his son and 2 close friends. Reports that since then, patient has had significant health declines as well. Denies any chest pain, shortness of breath, dizziness, nausea, or urinary symptoms today. UPDATE: remains asymptomatic, troponins negative x 3. Will start SSRI therapy upon discharge, follow-up with PCP Procedures: Imaging and X-Rays 12/14/18 19:19 CHEST 2 VIEWS [RAD] Stat HEAD WO CONTRAST [CT] Stat Cardiology Procedures 12/14/18 19:06 EKG NOW 12/14/18 22:26 Applications Tester .Continuous Abnormal Labs: Abnormal Lab Results 12/14/18 12/14/18 12/14/18 Range/Units 19:15 19:15 22:24 RBC 4.15 L (4.40-5.70) M/uL Hgb 11.8 L (14.0-18.0) gm/dl Hct 37.3 L (42.0-52.0) % MCHC 31.6 L (32-36) g/dl Chloride 97 L (98-107) mmol/L Creatinine 1.3 H (0.7-1.2) mg/dL POC Glucose 171 H (70-110) mg/dL Random Glucose 251 H (74-109) mg/dL 12/15/18 Range/Units 07:55 RBC (4.40-5.70) M/uL Hgb (14.0-18.0) gm/dl Hct (42.0-52.0) % MCHC (32-36) g/dl Chloride (98-107) mmol/L Creatinine (0.7-1.2) mg/dL POC Glucose 128 H (70-110) mg/dL Random Glucose (74-109) mg/dL Condition at Discharge: (2) Stable Discharge Medications - Discharge Medications Prescriptions: Sertraline HCl [Zoloft] 25 mg PO DAILY #30 tablet Home Medications: Ambulatory Orders Insulin Glargine,Hum.rec.anlog [Lantus Solostar] 35 units SQ QHS 09/10/17 [Last Taken 12/14/18] Lisinopril/Hydrochlorothiazide [Lisinopril-Hctz 20-12.5 mg Tab] 1 tab PO DAILY 09/10/17 [Last Taken 12/14/18] Tamsulosin HCl [Flomax] 0.4 mg PO DAILY 09/10/17 [Last Taken 12/14/18] Aspirin 81 mg PO DAILY 06/27/18 [Last Taken 12/14/18] Metoprolol Succinate [Toprol Xl] 25 mg PO DAILY 09/21/18 [Last Taken 12/14/18] Spironolactone 25 mg PO DAILY 09/21/18 [Last Taken 12/14/18] Ticagrelor [Brilinta] 90 mg PO DAILY 09/21/18 [Last Taken 12/14/18] Sertraline HCl [Zoloft] 25 mg PO DAILY #30 tablet 12/15/18 [Last Taken Unknown] Discharge Plan - Discharge Instructions Activity at Discharge: Increase Activity as Tolerated Diet at Discharge: Advance to Usual Diet Additional Instructions: -Start the antidepressant, Sertraline, once daily -Follow-up with PCP in 12-06 -Return to ER if any new symptoms develop Quality Measures - Quality Measures Quality Measures: Advance Directives, Documentation of Current Medications in Medical Record, Elder Maltreatment Screen and Follow-Up Plan, Screening for High Blood Pressure and F/U Documented - Current Medications Quality Measure: Measure #130: Documentation of Current Medications Documentation of Current Medications: <Current Medications Documented/Reviewed> [G8455] - Blood Pressure Screening Quality Measure: Screening for High Blood Pressure and Follow-Up Documented Does Patient Have Any of the Following: Active Dx of HTN Blood Pressure Classification: Hypertensive Reading Systolic Measurement: 186 Diastolic Measurement: 95 Screening for High Blood Pressure: Patient Exclusion, Hx of HTN [G9744] - Advance Directives Quality Measure: Measure #47: Care Plan Advance Directives Established: No Advance Directives Information Provided To Patient: No Advance Directives on File: No Living Will: No Power of Vessel Slag Worker: No Advance Care Planning: <Care Plan/Decision Maker Not Decided; Discussed & Documented> [1123F] - Elder Abuse Suspicion Index Screening: Elder Abuse Suspicion Index Screening Rely on people for bathing, dressing, shopping, banking, etc: No Prevented from getting food, clothes, medication, etc: No Made to feel shamed or threatened by someone: No Forced to sign papers or use money against will: No Feel afraid, touched in ways not wanted or hurt physically: No Poor eye contact, withdrawn, malnourished, cuts or bruises: No Screening Result: Negative result EASI Reference Information: Ji NAIDU, Zachary Armendariz, Maria Isabel Louis, Christine Forman.Development and validation of a tool to assist physicians identification of elder abuse: The Elder Abuse Suspicion Index (EASI ). Journal of Elder Abuse and Neglect, 2008; 20 (3): 276-300. - Elder Maltreatment Screen Quality Measures: Elder Maltreatment Screen and Follow-Up Plan Elder Maltreatment Screen: <Negative, No Follow-Up Plan Required> [G8734]
== END 2018-12-15 12:59 | disposition home or self-care (01) ==
LOC: ER 19:03 → MEDSURG 22:01
PROVIDERS: ADMIT Internal Medicine; ATTEND Internal Medicine
DX: R07.9 Chest pain, unspecified (principal); E11.9 Type 2 diabetes mellitus without complications; Z79.4 Long term (current) use of insulin; I25.10 Atherosclerotic heart disease of native coronary artery without angina pectoris; F43.21 Adjustment disorder with depressed mood; I10 Essential (primary) hypertension; E78.00 Pure hypercholesterolemia, unspecified; G20 Parkinson's disease; G25.81 Restless legs syndrome; I25.2 Old myocardial infarction; Z95.810 Presence of automatic (implantable) cardiac defibrillator; Z87.891 Personal history of nicotine dependence; Z95.5 Presence of coronary angioplasty implant and graft; Z87.442 Personal history of urinary calculi
CPT/HCPCS: 36416; 70450; 71046; 80053; 81001; 82948; 84484; 85025; 93005; 93010; 99220; 99285

== ENCOUNTER 2018-12-21 16:46 | Observation (INO) | payer MEDICARE ==
[2018-12-21] MEDS ORDERED: ASPIRIN 81 MG CHEWABLE TABLET PO ONE (16:55)
--- NOTE | 2018-12-21 16:55 | Emergency Department Record ---
History of Present Illness - General Stated Complaint: CHEST PRESSURE Time Seen by Provider: 12/21/18 16:48 Source: Patient Mode of Arrival: Ambulatory Limitations: No limitations - History of Present Illness Initial Comments: 78 yo male presents with chest pressure that started about one hour prior to arrival. The pressure sensation wraps around the left side. The sensation lasted about an hour and is now nearly gone. He reports he has CAD with stents placed this year. He also has a defibrillator. No shortness of breath. No syncope. No cough. He did have two episodes of diarrhea as well. No abdominal pain. His reports their son six months ago. He has not handled this well. She states in the last week he has become tearful, emotional, and unable to control the crying at times. He has not discussed this grief with any therapist at this point. Dr Ramirez is his PCP Dr Ragsdale is his consulting it architect MD Complaint: Chest pain -: Hour(s) (1 hour of pressure) Onset: During rest Pain Location: Left chest Pain Radiation: Back Severity: Moderate Quality: Tightness, Other Consistency: Now resolved Improves With: Nothing Worsens With: Other (stress) Context: Other Anginal Symptoms: Other Other Symptoms: Other - Related Data Previous Rx's Medication Instructions Recorded Sertraline HCl [Zoloft] 25 mg PO DAILY #30 tablet 12/15/18 Mirtazapine [Remeron] 15 mg PO QHS #30 tablet 12/22/18 Allergies Allergy/AdvReac Type Severity Reaction Status Date / Time sitagliptin phosphate Allergy RASH Verified 12/21/18 16:54 [From Allison] Past Medical History - SOCIAL HISTORY Smoking Status: Former smoker Drug Use: None - RESPIRATORY Hx Respiratory Disorders: No - CARDIOVASCULAR Hx Cardio Disorders: Yes Hx Cardiac Cath: Yes Hx CHF: Yes Hx Heart Attack: Yes Hx Hypertension: Yes Hx Irregular Heartbeat: Yes Hx Pacemaker/Defib: Yes (defibrillator) Hx Vascular Disease: Yes (CAD) Comment:: high cholesterol - NEURO Hx Neuro Disorders: Yes Comment:: rls/ parkinson's but not currently on meds for these - GI Hx GI Disorders: Yes Hx of Polyps: Yes - Hx Genitourinary Disorders: Yes Hx Kidney Stones: Yes Hx Prostate Problems: Yes - ENDOCRINE Hx Endocrine Disorders: Yes Hx Diabetes: Yes Hx Thyroid Disease: No - MUSCULOSKELETAL Hx Musculoskeletal Disorders: No - PSYCH Hx Psych Problems: No Comment:: depression/anxiety since son passsed in May, - HEMATOLOGY/ONCOLOGY Hx Hematology/Oncology Disorders: No Family Medical History Hx Cancer: Mother Course - Reevaluation(s) Reevaluation #1: 12/21/18 16:55 EKG #1: 16:41 Rate: 86 Rhythm: sinus with PVC's Freedom: left Intervals: Qtc 470 ST segments: no acute changes Prior: No changes from the prior EKG 12/21/18 17:33 The CBC was reviewed No acute changes The CMP was reviewed. The CR is 1.5 prior was 1.3 The Troponin is normal at 0.01 Medical Decision Making - Lab Data Result diagrams: 12/21/18 16:55 12/21/18 16:55 Disposition Disposition: Admit Clinical Impression: Chest pain Qualifiers: Chest pain type: unspecified Qualified Code(s): R07.9 - Chest pain, unspecified Disposition: Still a Patient at [facility] Decision to Admit: Admit from ER Decision to Admit Date: 12/21/18 Decision to Admit Time: 18:00 Condition: (2) Stable Time of Disposition: 18:00 Quality - Quality Measures Quality Measures: N/A - Blood Pressure Screening Does Patient Have Any of the Following: Active Dx of HTN Blood Pressure Classification: Normal BP Reading Systolic Measurement: 119 Diastolic Measurement: 73 Screening for High Blood Pressure: Patient Exclusion, Hx of HTN [G9744]
[2018-12-21 17:06] LABS: ABSOLUTE NEUTROPHIL COUNT 7.19; BASO % 0.4 % (0-6); EOS % 1.4 % (0-6); HEMATOCRIT 40.6 % (42.0-52.0); HEMOGLOBIN 13.2 gm/dl (14.0-18.0); LYMPH % 23.1 % (16-45); MEAN CELL VOLUME 90.4 fl (81-97); MEAN CORPUSCULAR HEMOGLOBIN 29.3 pg (27-33); MEAN CORPUSCULAR HGB CONC 32.5 g/dl (32-36); MEAN PLATELET VOLUME 9.2 fl (7.4-10.4); MONO % 8.1 % (0-9); PLATELET COUNT 307 K/uL (130-400); RED BLOOD COUNT 4.49 M/uL (4.40-5.70); RED CELL DISTRIBUTION WIDTH 13.8 % (11.5-14.5); WHITE BLOOD COUNT W/O DIFF 10.7 K/uL (4.2-12.2)
[2018-12-21 17:18] LABS: INR 1.1; PARTIAL THROMBOPLASTIN TIME 28.2 SECONDS (24.5-39.1); PROTHROMBIN TIME (PATIENT) 10.9 SECONDS (9.5-12.1)
[2018-12-21 17:19] LABS: BLOOD UREA NITROGEN 22 mg/dL (8-23); CREATININE 1.5 mg/dL (0.7-1.2); EST GLOMERULAR FILTRATION RATE 48 mL/min
[2018-12-21 17:22] LABS: GLUCOSE,RANDOM 207 mg/dL (74-109)
[2018-12-21 17:24] LABS: ALB/GLOB RATIO 1.5 (1.1-1.8); ALBUMIN 4.8 g/dL (4.0-5.0); ALT/SGPT 29 U/L (<41); AST/SGOT 20 U/L (10.0-50.0)
[2018-12-21 17:25] LABS: ALKALINE PHOSPHATASE 77 U/L (40-129)
--- NOTE | 2018-12-21 18:11 | RADIOLOGY REPORT ---
EXAMINATION: Two View Chest Radiographs EXAM DATE: 12/21/2018 5:42 PM TECHNIQUE: Frontal and lateral views INDICATION: chest pressure COMPARISON: December 14, 2018 ENCOUNTER: Not applicable FINDINGS: The heart, mediastinum, and pulmonary vasculature are stable. Redemonstration dual lead left-sided ca rdiac pacemaker.. No lung consolidation or pleural effusions are present. IMPRESSION: Negative for active intrathoracic disease. Dictated by: Emerson Kumar MD on 12/21/2018 6:07 PM. .
[2018-12-21] MEDS ORDERED: LOPERAMIDE 2 MG CAPSULE PO ONE (18:14)
[2018-12-21] MEDS ORDERED: ACETAMINOPHEN 500 MG TABLET PO PRN (19:10)
[2018-12-21] MEDS ORDERED: NITROGLYCERIN 0.4MG SL TABLET #25 BTL SL PRN (19:10)
[2018-12-21] MEDS ORDERED: GUAIFENESIN 600 MG TABCR PO PRN (21:48)
[2018-12-21] MEDS: LEVEMIR FLEXTOUCH 100 UNIT/ML INSULIN PEN SQ SCH ×2 (21:52→22:04)
--- NOTE | 2018-12-22 08:40 | History & Physical ---
History of Present Illness - Date of Service Date of Service for History & Physical: 12/22/18 - History of Present Illness Admitting Diagnosis: Chest Pain History of Present Illness: Mr. Melgoza is a 78 y/o male with history of coronary artery disease and heart failure who comes in with complaint of chest pain. He says he was going out yesterday and began to feel unwell. He describes as short period of chest pain and mild lightheadedness. He states that he has these symptoms periodically and was most recently in hospital for the same issue. The patient's who is at bedsides states that he has not felt well for the last 6 months since the passing of their son and a few other close friends. She states that since then he has had a 3 cardiac stents and a defibrillator placed. He was seeing Dr. Narvaez his [employer] but is scheduled to see another [employer] for continued management. On admission the patient's chest discomfort had resolved and initial Troponin was negative. The patient is admitted for observation and cardiac monitoring. PCP: Dr. Ramirez Travel Screening - Travel/Exposure Within Last 30 Days Have you traveled within the last 30 days?: No - Travel/Exposure Within Last Year Have you traveled outside the [place] in the last year?: No - Additonal Travel Details Have you been exposed to anyone with a communicable illness?: No - Travel Symptoms Symptom Screening: Diarrhea Past Medical History - SOCIAL HISTORY Smoking Status: Former smoker - RESPIRATORY Hx Respiratory Disorders: No - CARDIOVASCULAR Hx Cardio Disorders: Yes Hx Cardiac Cath: Yes Hx CHF: Yes Hx Heart Attack: Yes Hx Hypertension: Yes Hx Irregular Heartbeat: Yes Hx Pacemaker/Defib: Yes (defibrillator) Hx Vascular Disease: Yes (CAD) Comment:: high cholesterol - NEURO Hx Neuro Disorders: Yes Comment:: rls/ parkinson's but not currently on meds for these - GI Hx GI Disorders: Yes Hx of Polyps: Yes - Hx Genitourinary Disorders: Yes Hx Kidney Stones: Yes Hx Prostate Problems: Yes - ENDOCRINE Hx Endocrine Disorders: Yes Hx Diabetes: Yes Hx Thyroid Disease: No - MUSCULOSKELETAL Hx Musculoskeletal Disorders: No - PSYCH Hx Psych Problems: No Comment:: depression/anxiety since son passsed in May, - HEMATOLOGY/ONCOLOGY Hx Hematology/Oncology Disorders: No Family Medical History Any Significant Family History?: Yes Hx Cancer: Mother H&P Meds/Allergies - Allergies Allergies: Allergies Allergy/AdvReac Type Severity Reaction Status Date / Time sitagliptin phosphate Allergy RASH Verified 12/21/18 16:54 [From Allison] - Home Medications Previous Rx's Medication Instructions Recorded Sertraline HCl [Zoloft] 25 mg PO DAILY #30 tablet 12/15/18 - Active Medications Active Medications: Current Medications Acetaminophen (Tylenol 500mg Tab) 500 mg PO Q6H PRN PRN Reason: PAIN - MILD(1-4)/FEVER Aspirin (Ecotrin (Ec)) 325 mg PO DAILY JANNETH Guaifenesin (Mucinex) 600 mg PO BID PRN PRN Reason: congestion Last Admin: 12/21/18 21:58 Dose: 600 mg Documented by: Hydrochlorothiazide (Hctz 12.5mg) 12.[address] [facility] Insulin Detemir (Levemir Flextouch) 35 unit SQ QHS JANNETH Last Admin: 12/21/18 22:04 Dose: Not Given Documented by: Lisinopril (Zestril) [address] [facility] Metoprolol Succinate (Toprol Xl) [address] [facility] Nitroglycerin (Nitrostat 0.4mg) 0.4 mg SL Q5MIN PRN PRN Reason: CHEST PAIN Non-Formulary Medication (Ticagrelor [Brilinta]) [address] [facility] Sertraline HCl (Zoloft) 25 mg PO DAILY JANNETH Spironolactone (Aldactone) 25 mg PO DAILY JANNETH Tamsulosin HCl (Flomax) 0.[address] [facility] Physical Exam - Vital Signs Vital Signs: Vital Signs - Last 24 Hrs Temp Pulse Pulse Resp BP BP Pulse Ox 12/22/18 06:00 97.7 F 71 18 120/68 97 12/22/18 00:00 97.9 F 68 18 95 12/21/18 21:00 84 20 12/21/18 20:00 97.8 F 84 20 96/53 97 12/21/18 19:06 18 12/21/18 18:40 97.8 F 84 16 120/68 98 12/21/18 18:35 97.5 F L 74 16 119/73 96 12/21/18 18:28 84 18 134/71 97 12/21/18 17:38 84 18 134/73 97 12/21/18 16:56 97.5 F L 89 16 137/81 96 - General General Appearance: Alert, Oriented x3 Limitations: No limitations - Neck Neck exam: Normal inspection - Respiratory Respiratory exam: Normal lung sounds bilaterally - Cardiovascular Cardiovascular Exam: Regular rate, Normal rhythm Peripheral Pulses: 3+: Radial (R), Radial (L), Dorsalis Pedis (R), Dorsalis Pedis (L) - GI/Abdominal GI/Abdominal exam: Soft, Normal bowel sounds - Extremities Extremities exam: Normal inspection. negative: Tenderness - Psychiatric Psychiatric exam: Anxious, Depressed Results - Labs Result Diagrams: 12/21/18 16:55 12/21/18 16:55 Labs Last 24 Hours: Laboratory Results - last 24 hr 12/21/18 12/21/18 12/21/18 16:55 16:55 16:55 WBC 10.7 RBC 4.49 Hgb 13.2 L Hct 40.6 L MCV 90.4 MCH 29.3 MCHC 32.5 RDW 13.8 Plt Count 307 MPV 9.2 Gran % 67.0 Lymphocytes % 23.1 Monocytes % 8.1 Eosinophils % 1.4 Basophils % 0.4 Absolute Neutrophils 7.19 PT 10.9 INR 1.1 APTT 28.2 Sodium 138 Potassium 4.1 Chloride 96 L Carbon Dioxide 25.0 Anion Gap 17.0 H BUN 22 Creatinine 1.5 H Estimated GFR 48 POC Glucose Random Glucose 207 H Calcium 10.1 Total Bilirubin 0.50 AST 20 ALT 29 Alkaline Phosphatase 77 Troponin T < 0.010 Total Protein 8.0 Albumin 4.8 Globulin 3.2 Albumin/Globulin Ratio 1.5 12/21/18 12/21/18 12/21/18 21:31 22:00 22:10 WBC RBC Hgb Hct MCV MCH MCHC RDW Plt Count MPV Gran % Lymphocytes % Monocytes % Eosinophils % Basophils % Absolute Neutrophils PT INR APTT Sodium Potassium Chloride Carbon Dioxide Anion Gap BUN Creatinine Estimated GFR POC Glucose 192 H Cancelled Random Glucose Calcium Total Bilirubin AST ALT Alkaline Phosphatase Troponin T < 0.010 Total Protein Albumin Globulin Albumin/Globulin Ratio 12/22/18 06:20 WBC RBC Hgb Hct MCV MCH MCHC RDW Plt Count MPV Gran % Lymphocytes % Monocytes % Eosinophils % Basophils % Absolute Neutrophils PT INR APTT Sodium Potassium Chloride Carbon Dioxide Anion Gap BUN Creatinine Estimated GFR POC Glucose Random Glucose Calcium Total Bilirubin AST ALT Alkaline Phosphatase Troponin T < 0.010 Total Protein Albumin Globulin Albumin/Globulin Ratio VTE H&P Assessment - Risk for VTE Risk for VTE: Yes Risk Level: High Risk Assessment Date: 12/22/18 Risk Assessment Time: 10:35 VTE Orders Placed or Will Be Placed: Yes Plan - Detailed Diagnosis and Plan (1) Anxiety about health Current Visit: Yes Status: Acute Base Code: F41.8 - OTHER SPECIFIED ANXIETY DISORDERS Comment: 12/22/18: - Patient has severe anxiety since he was diagnosed with CHF. He is currently taking Seroquel and Trazodone for sleep. - D/C Trazodone at discharge and start Remeron 15mg QHS. - Grief counseling resources to be provided by . (2) Chest pain Current Visit: Yes Status: Acute Qualifiers: Chest pain type: unspecified Qualified Code(s): R07.9 - Chest pain, unspecified Base Code: R07.9 - CHEST PAIN, UNSPECIFIED Comment: 12/22/18: - Pain has resolved since admission. - hx of CAD with stents x 3 and CHF. - Troponins negative x 3 EKG: normal sinus with Qtc prolongation. - Symptoms appear to be anxiety induced. (3) Systolic congestive heart failure Current Visit: Yes Status: Acute Base Code: I50.20 - UNSPECIFIED SYSTOLIC (CONGESTIVE) HEART FAILURE Comment: 12/22/18: - EF 20% ( No echo in system. Noted by pts [employer]) No indication of decompensation. - EKG: NSR, prolonged Qtc but not acute ST-T changes. - Continue BB, statin, SUJIT, ASA. - Lasix 20mg daily PRN - Follow up with Cardiology for further management. (4) Hx of coronary artery disease Current Visit: Yes Status: Acute Base Code: Z86.79 - PERSONAL HISTORY OF OTHER DISEASES OF THE CIRCULATORY SYSTEM Comment: 12/22/18: - Hx of 3 drug eluting stents with second PCI showing patency in Sep 2018. - Continue on ASA, BB, statin and Sujit inhibitor. - Discussed ECG and findings with Cardiology and we will have follow as an outpatient. (5) DVT prophylaxis Current Visit: No Status: Acute Base Code: Z29.9 - ENCOUNTER FOR PROPHYLACTIC MEASURES, UNSPECIFIED Comment: 12/22/18: -Moderate risk due to age and hospitalization -Anticipated admission <24 hours -Encourage ambulation within the room (6) Full code status Current Visit: No Status: Acute Base Code: Z78.9 - OTHER SPECIFIED HEALTH STATUS Comment: 12/22/18: -Patient is a full code this admission - Disposition Discussed starting Remereon with Dr. Ramirez the patient's PCP. We will have him stop Trazodoe and start Remeron 15mg QHS.
[2018-12-22] MEDS ORDERED: HYDROCHLOROTHIAZIDE 12.5 MG CAPSULE PO SCH (10:00)
[2018-12-22] MEDS ORDERED: TAMSULOSIN HCL 0.4 MG CAP.ER.24H PO SCH (10:00)
[2018-12-22] MEDS ORDERED: SPIRONOLACTONE 25 MG TAB PO SCH (10:00)
[2018-12-22] MEDS ORDERED: LISINOPRIL 20 MG TABLET PO SCH (10:00)
[2018-12-22] MEDS ORDERED: METOPROLOL SUCC 25 MG TAB.ER PO SCH (10:00)
[2018-12-22] MEDS ORDERED: TICAGRELOR 90 MG PO SCH (10:00)
[2018-12-22] MEDS ORDERED: FUROSEMIDE 20 MG TABLET PO SCH (10:00)
[2018-12-22] MEDS ORDERED: ASPIRIN 325 MG TAB ENTERIC-COATED PO SCH (10:00)
[2018-12-22] MEDS ORDERED: SERTRALINE HCL 50 MG TABLET PO SCH (10:00)
[2018-12-22] MEDS ORDERED: ENOXAPARIN 40 MG/0.4 ML SYR SQ SCH (10:45)
--- NOTE | 2018-12-22 11:09 | Discharge Summary ---
Providers Discharge Summary Date: 12/22/18 Date of admission: 12/21/18 18:30 Attending physician: GÓMEZ MESSER Primary care physician: Wei Ramirez Physical Exam - Vital Signs Vital Signs: Vital Signs - Last 24 Hrs Temp Pulse Pulse Pulse Resp BP BP 12/22/18 08:00 97.7 F 59 L 16 113/69 12/22/18 06:00 97.7 F 71 18 120/68 12/22/18 00:00 97.9 F 68 18 12/21/18 21:00 84 20 12/21/18 20:00 97.8 F 84 20 96/53 12/21/18 19:06 18 12/21/18 18:40 97.8 F 84 16 120/68 12/21/18 18:35 97.5 F L 74 16 119/73 12/21/18 18:28 84 18 134/71 12/21/18 17:38 84 18 134/73 12/21/18 16:56 97.5 F L 89 16 137/81 Pulse Ox 12/22/18 08:00 100 12/22/18 06:00 97 12/22/18 00:00 95 12/21/18 21:00 12/21/18 20:00 97 12/21/18 19:06 12/21/18 18:40 98 12/21/18 18:35 96 12/21/18 18:28 97 12/21/18 17:38 97 12/21/18 16:56 96 - General General Appearance: Alert, Oriented x3 Limitations: No limitations - Neck Neck exam: Normal inspection - Respiratory Respiratory exam: Normal lung sounds bilaterally - Cardiovascular Cardiovascular Exam: Regular rate, Normal rhythm Peripheral Pulses: 3+: Radial (R), Radial (L), Dorsalis Pedis (R), Dorsalis Pedis (L) - GI/Abdominal GI/Abdominal exam: Soft, Normal bowel sounds - Extremities Extremities exam: Normal inspection. negative: Tenderness - Psychiatric Psychiatric exam: Anxious, Depressed Hospitalization - Hospitalization Admission Diagnosis: Chest Pain - Problem List/Discharge Diagnosis (1) Anxiety about health Current Visit: Yes Status: Acute Base Code: F41.8 - OTHER SPECIFIED ANXIETY DISORDERS Comment: 12/22/18: - Patient has severe anxiety since he was diagnosed with CHF. He is currently taking Seroquel and Trazodone for sleep. - D/C Trazodone at discharge and start Remeron 15mg QHS. - Grief counseling resources to be provided by [facility]. (2) Chest pain Current Visit: Yes Status: Acute Discharge Diagnosis: Chest pain type: unspecified Qualified Code(s): R07.9 - Chest pain, unspecified Base Code: R07.9 - CHEST PAIN, UNSPECIFIED Comment: 12/22/18: - Pain has resolved since admission. - hx of CAD with stents x 3 and CHF. - Troponins negative x 3 EKG: normal sinus with Qtc prolongation. - Symptoms appear to be anxiety induced. (3) Systolic congestive heart failure Current Visit: Yes Status: Acute Base Code: I50.20 - UNSPECIFIED SYSTOLIC (CONGESTIVE) HEART FAILURE Comment: 12/22/18: - EF 20% ( No echo in system. Noted by pts Informatics Spec) No indication of d ecompensation. - EKG: NSR, prolonged Qtc but not acute ST-T changes. - Continue BB, statin, SUJIT, ASA. - Lasix 20mg daily PRN - Follow up with Cardiology for further management. (4) Hx of coronary artery disease Current Visit: Yes Status: Acute Base Code: Z86.79 - PERSONAL HISTORY OF OTHER DISEASES OF THE CIRCULATORY SYSTEM Comment: 12/22/18: - Hx of 3 drug eluting stents with second PCI showing patency in Sep 2018. - Continue on ASA, BB, statin and Sujit inhibitor. - Discussed ECG and findings with Cardiology and we will have follow as an outpatient. (5) DVT prophylaxis Current Visit: No Status: Acute Base Code: Z29.9 - ENCOUNTER FOR PROPHYLACTIC MEASURES, UNSPECIFIED Comment: 12/22/18: -Moderate risk due to age and hospitalization -Anticipated admission <24 hours -Encourage ambulation within the room (6) Full code status Current Visit: No Status: Acute Base Code: Z78.9 - OTHER SPECIFIED HEALTH STATUS Comment: 12/22/18: -Patient is a full code this admission - Disposition Discussed starting Remereon with Dr. Ramirez the patient's PCP. We will have him stop Trazodoe and start Remeron 15mg QHS. - Hospitalization Course Hospital Course: Mr. Melgoza is a 78 y/o male with history of coronary artery disease and heart failure who comes in with complaint of chest pain. He says he was going out yesterday and began to feel unwell. He describes as short period of chest pain and mild lightheadedness. He states that he has these symptoms periodically and was most recently in hospital for the same issue. The patient's who is at bedsides states that he has not felt well for the last 6 months since the passing of their son and a few other close friends. She states that since then he has had a 3 cardiac stents and a defibrillator placed. He was seeing Dr. Narvaez his Informatics Spec but is scheduled to see another Informatics Spec for continued management. On admission the patient's chest discomfort had resolved and initial Troponin was negative. The patient is admitted for observation and cardiac monitoring. PCP: Dr. Ramirez Procedures: Imaging and X-Rays 12/21/18 16:48 CHEST 2 VIEWS [RAD] Stat Cardiology Procedures 12/21/18 16:48 [facility] NOW 12/21/18 17:13 EKG NOW 12/21/18 19:10 [facility] .Continuous Abnormal Labs: Abnormal Lab Results 12/21/18 12/21/18 12/21/18 Range/Units 16:55 16:55 21:31 Hgb 13.2 L (14.0-18.0) gm/dl Hct 40.6 L (42.0-52.0) % Chloride 96 L (98-107) mmol/L Anion Gap 17.0 H (7-16) Creatinine 1.5 H (0.7-1.2) mg/dL POC Glucose 192 H (70-110) mg/dL Random Glucose 207 H (74-109) mg/dL 12/22/18 Range/Units 08:57 Hgb (14.0-18.0) gm/dl Hct (42.0-52.0) % Chloride (98-107) mmol/L Anion Gap (7-16) Creatinine (0.7-1.2) mg/dL POC Glucose 161 H (70-110) mg/dL Random Glucose (74-109) mg/dL Condition at Discharge: (2) Stable Discharge Medications - Discharge Medications Prescriptions: Mirtazapine [Remeron] 15 mg PO QHS #30 tablet Home Medications: Ambulatory Orders Insulin Glargine,Hum.rec.anlog [Lantus Solostar] 35 units SQ QHS 09/10/17 [Last Taken 12/21/18] Lisinopril/Hydrochlorothiazide [Lisinopril-Hctz 20-12.5 mg Tab] 1 tab PO DAILY 09/10/17 [Last Taken 12/21/18] Tamsulosin HCl [Flomax] 0.4 mg PO DAILY 09/10/17 [Last Taken 12/21/18] Aspirin 81 mg PO DAILY 06/27/18 [Last Taken 12/21/18] Metoprolol Succinate [Toprol Xl] 25 mg PO DAILY 09/21/18 [Last Taken 12/21/18] Spironolactone 25 mg PO DAILY 09/21/18 [Last Taken 12/21/18] Ticagrelor [Brilinta] 90 mg PO BID 09/21/18 [Last Taken 12/21/18] Sertraline HCl [Zoloft] 25 mg PO DAILY #30 tablet 12/15/18 [Last Taken 12/21/18] Mirtazapine [Remeron] 15 mg PO QHS #30 tablet 12/22/18 [Last Taken Unknown] Discharge Plan - Discharge Instructions Activity at Discharge: Resume Usual Activities As Tolerated Diet at Discharge: Diabetic Diet, Low Fat, Low Cholesterol, Low Salt Diet Instructions: Noncardiac Chest Pain (DC), Anxiety (DC) Additional Instructions: Stop taking Trazodone at night. Begin taking Remeron 15mg at bedtime only. Resume all other medications as prescribed and follow up with your Informatics Spec and PCP Dr. Ramirez within 1-2 weeks. Discussed patient's admission with PCP and Cardiology and they are in agreement with plan of care. Quality Measures - Quality Measures Quality Measures: Advance Directives, Documentation of Current Medications in Medical Record, Elder Maltreatment Screen and Follow-Up Plan, Heart Failure, Screening for High Blood Pressure and F/U Documented - Current Medications Quality Measure: Measure #130: Documentation of Current Medications Documentation of Current Medications: <Current Medications Documented/Reviewed> [G84] - Blood Pressure Screening Quality Measure: Screening for High Blood Pressure and Follow-Up Documented Does Patient Have Any of the Following: Active Dx of HTN Blood Pressure Classification: Normal BP Reading Systolic Measurement: 119 Diastolic Measurement: 73 Screening for High Blood Pressure: Patient Exclusion, Hx of HTN [G9744] - Heart Failure (SUJIT/ARB Therapy) Quality Measure: Heart Failure Left Ventricular Systolic Function: LV Ejection Fraction less than 40% [3021F] SUJIT Inhibitor or ARB Therapy for LVSD: <SUJIT Inhibitor or ARB therapy prescribed or currently taken> [4010F] - Heart Failure (Beta-geni Therapy) Quality Measure: Heart Failure Left Ventricular Systolic Function: LV Ejection Fraction less than 40% [3021F] Beta-Geni Therapy for LVEF < 40%: <Beta-Geni Therapy Prescribed> [G8450] - Advance Directives Quality Measure: Measure #47: Care Plan Advance Directives Established: No Advance Directives Information Provided To Patient: Declined Advance Directives on File: No Living Will: No Power of Director Of Online Merchandising: No Advance Care Planning: <Care Plan/Decision Maker Documented; Discussed & Documented> [1123F] - Elder Abuse Suspicion Index Screening: Elder Abuse Suspicion Index Screening Rely on people for bathing, dressing, shopping, banking, etc: No Prevented from getting food, clothes, medication, etc: No Made to feel shamed or threatened by someone: No Forced to sign papers or use money against will: No Feel afraid, touched in ways not wanted or hurt physically: No Poor eye contact, withdrawn, malnourished, cuts or bruises: No Screening Result: Negative result EASI Reference Information: Ji NAIDU, Zachary C, Maria Isabel D, Christine M.Development and validation of a tool to assist physicians identification of elder abuse: The Elder Abuse Suspicion Index (EASI ). Journal of Elder Abuse and Neglect, 2008; 20 (3): 276-300. - Elder Maltreatment Screen Quality Measures: Elder Maltreatment Screen and Follow-Up Plan Elder Maltreatment Screen: <Negative, No Follow-Up Plan Required> [A4429]
[2018-12-22] MEDS ORDERED: TRAZODONE 50 MG TABLET PO SCH (22:00)
[2018-12-22] MEDS ORDERED: MIRTAZAPINE 15 MG TABLET PO SCH (22:00)
== END 2018-12-22 11:52 | disposition home or self-care (01) ==
LOC: ER 16:46 → MEDSURG 18:30
PROVIDERS: ADMIT Internal Medicine; ATTEND Internal Medicine
DX: R07.9 Chest pain, unspecified (principal); F41.8 Other specified anxiety disorders; I50.20 Unspecified systolic (congestive) heart failure; I25.2 Old myocardial infarction; I10 Essential (primary) hypertension; E78.00 Pure hypercholesterolemia, unspecified; E11.9 Type 2 diabetes mellitus without complications; G20 Parkinson's disease; G25.81 Restless legs syndrome; Z95.810 Presence of automatic (implantable) cardiac defibrillator; Z87.891 Personal history of nicotine dependence; Z95.5 Presence of coronary angioplasty implant and graft; Z98.61 Coronary angioplasty status; Z87.442 Personal history of urinary calculi; Z86.79 Personal history of other diseases of the circulatory system
CPT/HCPCS: 36416; 71046; 80053; 82948; 84484; 85025; 85610; 85730; 93005; 93010; 99220; 99285